=== PATIENT | male | born 1940 | race African-American/Black ===

== ENCOUNTER 2016-09-02 09:05 | Emergency (ER) | payer OTHER ==
--- NOTE | 2016-09-02 09:18 | PDOC ---
History of Present Illness <Mary Vargas - Last Filed: 09/02/16 11:42> <Nahomy Rudolph - Last Filed: 09/03/16 19:29> - General Chief Complaint: Chest Pain Stated Complaint: CHEST PAIN Time Seen by Provider: 09/02/16 09:17 - History of Present Illness Initial Comments: 09/02/16 09:31 Patient is a 76 year old male with significant medical hx of DM and HTN who is presenting to the ED with one hour of constant, substernal chest discomfort. The patient reports his chest pain is non-radiating and moderate in severity. The patient is unable to characterize his pain. His pain is not accompanied by nausea, vomiting, diaphoresis, or shortness of breath. He denies any alleviating or aggravating factors. Patient was given 4 aspirin via EMS but he continues to have chest discomfort in the ED. The patient also complains of two days of indigestion that is accompanied with diffuse abdominal discomfort and frequent belching but denies any vomiting or diarrhea. He also notes an episode of chest discomfort yesterday brief that was brief and did not seek medical care. Patient had a negative stress test about five years ago. EKG by EMS shows questionable elevations in V2 V3. No ST changes in EKG in the ED. (Mary Vargas) Past History <Mary Vargas - Last Filed: 09/02/16 11:42> <Nahomy Rudolph - Last Filed: 09/03/16 19:29> - Past Medical History Allergies/Adverse Reactions: Allergies Allergy/AdvReac Type Severity Reaction Status Date / Time No Known Allergies Allergy Verified 09/02/16 09:18 Home Medications: Ambulatory Orders Lisinopril [Prinivil] 20 mg PO DAILY 09/02/16 Metformin HCl [Glucophage] 1,000 mg PO DAILY 09/02/16 Review of Systems <Mary Vargas - Last Filed: 09/02/16 11:42> <Nahomy Rudolph - Last Filed: 09/03/16 19:29> - Review of Systems Comments:: 09/02/16 09:34 GENERAL/CONSTITUTIONAL: No fever or chills. No weakness. HEAD, EYES, EARS, NOSE AND THROAT: No change in vision. No ear pain or discharge. No sore throat. CARDIOVASCULAR: Chest pain. No shortness of breath. RESPIRATORY: No cough, wheezing, or hemoptysis. GASTROINTESTINAL: Indigestion, abdominal discomfort, belching. No nausea, vomiting, diarrhea or constipation. GENITOURINARY: No dysuria, frequency, or change in urination. MUSCULOSKELETAL: No joint or muscle swelling or pain. No neck or back pain. ENDOCRINE: No increased thirst. No abnormal weight change. SKIN: No rash NEUROLOGIC: No headache, vertigo, loss of consciousness, or change in strength/ sensation. (Mary Vargas) *Physical Exam <Mary Vargas - Last Filed: 09/02/16 11:42> <Nahomy Rudolph - Last Filed: 09/03/16 19:29> - Vital Signs Last Vital Signs Temp Pulse Resp BP Pulse Ox 98.4 F 68 18 163/81 95 09/02/16 11:36 09/02/16 11:36 09/02/16 11:36 09/02/16 11:36 09/02/16 11:21 - Physical Exam Comments: 09/02/16 09:35 GENERAL: Awake, alert, and fully oriented, in no acute distress HEAD: No signs of trauma EYES: PERRLA, EOMI, sclera anicteric, conjunctiva clear ENT: Auricles normal inspection, hearing grossly normal, nares patent, oropharynx clear without exudates. Moist mucosa NECK: Normal ROM, supple, no lymphadenopathy, JVD, or masses LUNGS: Breath sounds equal, clear to auscultation bilaterally. No wheezes, and no crackles HEART: Regular rate and rhythm, normal S1 and S2, no murmurs, rubs or gallops ABDOMEN: Obese. Soft, nontender, normoactive bowel sounds. No guarding, no rebound. No masses EXTREMITIES: Normal range of motion, no edema. No clubbing or cyanosis. No cords, erythema, or tenderness NEUROLOGICAL: Cranial nerves II through XII grossly intact. Normal speech, normal gait SKIN: Warm, Dry, normal turgor, no rashes or lesions noted. HEMATOLOGIC/LYMPHATIC: No anemia, easy bleeding, or history of blood clots. ALLERGIC/IMMUNOLOGIC: No hives or skin allergy. (Mary Vargas) Heart Score/ECG Review <Mary Vargas - Last Filed: 09/02/16 11:42> - Electrocardiogram EKG: Non specific repolarization disturbance - Age Age: >/= 65 - Risk Factors Risk Factors Heart Score: Yes Hx Hypertension, Yes Hx Diabetes, Yes Hx Obesity Based on the list above the patient has:: >/=3 risk factors or Hx atherosclerotic disease - ECG Intrepretation Rhythm: Regular Rhythm - [place]: Normal - P and MS Prominent R with upright T in V1 (true posterior PR): No Delta Wave(s) Present: No - ST and T Early Repolarization: Yes <Nahomy Rudolph - Last Filed: 09/03/16 19:29> #1 09/02/16 09:36 Normal sinus rhythm at 94 bpm Cannot rule out Inferior infarct, age undetermined Anterior infarct, age undetermined Abnormal ECG (Mary Vargas) #2 09/02/16 11:14 Normal sinus rhythm at 78 bpm Minimal voltage criteria for LVH, may be normal variant Inferior infarct, age undetermined Anterior infarct, age undetermined Prolonged QT Abnormal ECG (Mary Vargas) ED Treatment Course - LABORATORY CBC & Chemistry Diagram: 09/02/16 09:19 09/02/16 09:19 - Consult/PCP Time Called: 09:50 (Spoke with dr. santiago 9:50 AM discussed with him the patient s ongoing chest pain the EKG that was done with EMS positive troponins, recommended another EKG which was done which showed small ST elevations in V2 and V3. Case again discussed with dr santiago who recommended transfer to [facility] for cardiac catheterization.) Case discussed with personal care physician: Albert Ang <Mary Vargas - Last Filed: 09/02/16 11:42> - LABORATORY CBC & Chemistry Diagram: 09/02/16 09:19 09/02/16 09:19 <Nahomy Rudolph - Last Filed: 09/03/16 19:29> - ADDITIONAL ORDERS Additional order review: 09/02/16 09:19 RBC 5.35 MCV 85.0 MCHC 32.4 RDW 15.4 MPV 7.6 Neutrophils % 62.3 Lymphocytes % 26.6 Monocytes % 10.1 Eosinophils % 0.5 Basophils % 0.5 - RADIOLOGY Radiology Studies Ordered: Category Date Time Status CHEST X-RAY PORTABLE* [RAD] Stat Radiology 06/02/17 09:19 Completed Radiograph Interpretation: 09/02/16 11:42 Chest X-Ray Impression: Cardiomegaly and probably mild congestion. Reported By: Mehran Pino MD (Mary Vargas) - Medications Given in the ED: ED Medications Discontinued Medications Generic Name Dose Route Start Last Admin Trade Name Michelle PRN Reason Stop Dose Admin Clopidogrel Bisulfate 600 mg 09/02/16 11:08 09/02/16 11:17 Plavix - PO 09/02/16 11:09 600 mg ONCE ONE Administration Heparin Sodium (Porcine) 5,000 unit 09/02/16 10:52 09/02/16 10:53 Heparin - IVPUSH 09/02/16 10:53 5,000 unit NOW ONE Administration Heparin Sodium (Porcine) 25, 500 mls @ 20 mls/hr 09/02/16 10:30 09/02/16 10:51 000 unit/ Sodium Chloride IV 20 mls/hr TITR ED Administration Protocol 1,000 UNIT/HR Nitroglycerin/Dextrose 250 mls @ 6 mls/hr 09/02/16 10:30 09/02/16 10:52 Nitroglycerin 25mg/D5w 250ml IVPB 6 mls/hr TITR ED Administration 10 MCG/MIN Nitroglycerin 0.3 mg 09/02/16 09:27 09/02/16 09:27 Nitrostat - SL 09/02/16 09:28 0.3 mg NOW ONE Administration Nitroglycerin 0.3 mg 09/02/16 09:56 09/02/16 09:57 Nitrostat - SL 09/02/16 09:57 0.3 mg NOW ONE Administration Medical Decision Making <Mary Vargas - Last Filed: 09/02/16 11:42> <Nahomy Rudolph - Last Filed: 09/03/16 19:29> - Medical Decision Making 09/02/16 09:46 Patient presents to the ED complaining of chest discomfort. Multiple risk factors for cardiac disease. Questionable anterior ST elevations on EKG by EMS , not seen in the ED. given ASA by EMS. Will check labs and cardiac enzymes, treat with nitroglycerin, likely admit to telemetry for continued monitoring. Will consult cardiology. 09/03/16 19:27 delayed note: Patient found to have positive troponin. Repeat EKG showed small elevations in v2 and v3. 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 Patient transferred directly to [facility] catheterization laboratory technician. ( Nahomy Rudolph) *DC/Admit/Observation/Transfer <Mary Vargas - Last Filed: 09/02/16 11:42> - Discharge Dispostion Admit: No - Transfer to Acute Care Facility Receiving Facility: [facility]. <Nahomy Rudolph - Last Filed: 09/03/16 19:29> Diagnosis at time of Disposition: STEMI (ST elevation myocardial infarction) - Discharge Dispostion Disposition: TRANSFER ACUTE CARE/OTHER HOSP Condition at time of disposition: Critical - Referrals Referrals: STAFF,NOT ON [Primary Care Provider] - - Attestations Scribe Attestion: 09/02/16 09:36 Documentation prepared by Mary Vargas, acting as bilingual medical assistant for Nahomy Rudolph MD. (Mary Vargas)
[2016-09-02 09:21] VITALS: BMI 28.5
[2016-09-02] MEDS ORDERED: NITROGLYCERIN SUBLINGUAL 1/200 0.3 MG BTL SL ONE ×2 (09:27→09:56)
[2016-09-02 09:36] LABS: BASOPHIL 0.5 % (0-2.0); EOSINOPHIL 0.5 % (0-4.5); MCH 27.5 pg (25.7-33.7); MCHC 32.4 g/dl (32.0-35.9); MEAN PLT VOLUME 7.6 fl (7.5-11.1); NEUTROPHILS 62.3 % (42.8-82.8); PLATELET COUNT 169 K/MM3 (134-434); RDW 15.4 % (11.9-15.9); WHITE BLOOD COUNT 2.9 K/mm3 (4.0-10.0)
[2016-09-02 10:01] LABS: INR 1.07 (0.82-1.09); PROTHROMBIN TIME (PATIENT) 11.8 SEC (9.98-11.88)
[2016-09-02 10:03] LABS: ALBUMIN 3.7 g/dl (3.4-5.0); ANION GAP 7 (8-16); BILIRUBIN,TOTAL 0.3 mg/dL (0.2-1.0); CO2 28 mmol/L (21-32); COCKROFT - GAULT 85.23; GLUCOSE,RANDOM 215 mg/dL (74-106); SGOT/AST 27 U/L (15-37); SGPT/ALT 20 U/L (12-78); TOT PROT 7.5 g/dl (6.4-8.2)
[2016-09-02 10:07] LABS: ALK PHOS 89 U/L (45-117)
[2016-09-02 10:19] LABS: TROPONIN I 1.53 ng/ml (0.00-0.05)
[2016-09-02] MEDS ORDERED: HEPARIN NA (PORCINE) 5,000 UNITS/ML 1ML VIAL IVPUSH PRN (10:24)
[2016-09-02] MEDS ORDERED: NITROGLYCERIN 25MG/D5W 250ML 250 ML IVPB SCH (10:30)
[2016-09-02] MEDS ORDERED: HEPARIN - 25,000 UNIT in SODIUM CHLORIDE 495 ML IV SCH (10:30)
[2016-09-02] MEDS ORDERED: NITROGLYCERIN 25MG/D5W 250ML 250 ML IVPB ONE (10:33)
[2016-09-02] MEDS ORDERED: HEPARIN NA (PORCINE) 5,000 UNITS/ML 1ML VIAL ONE (10:33)
[2016-09-02] MEDS ORDERED: HEPARIN INFUSION - 500 ML IVPB ONE (10:34)
[2016-09-02] MEDS ORDERED: HEPARIN NA (PORCINE) 5,000 UNITS/ML 1ML VIAL IVPUSH ONE (10:52)
[2016-09-02] MEDS ORDERED: CLOPIDOGREL BISULFATE 300 MG TABLET PO ONE (11:08)
[2016-09-02] MEDS ORDERED: CLOPIDOGREL BISULFATE 300 MG TABLET ONE (11:13)
[2016-09-02 11:37] VITALS: BP 163/81; PULSE 68; TEMP 98.4
--- NOTE | 2016-09-03 19:21 | EKG ---
Test Reason : Blood Pressure : / mmHG Vent. Rate : 078 BPM Atrial Rate : 078 BPM P-R Int : 154 ms QRS Dur : 098 ms QT Int : 458 ms P-R-T Axes : 065 -13 -10 degrees QTc Int : 522 ms NORMAL SINUS RHYTHM MINIMAL VOLTAGE CRITERIA FOR LVH, MAY BE NORMAL VARIANT INFERIOR INFARCT , AGE UNDETERMINED ANTERIOR INFARCT , AGE UNDETERMINED PROLONGED QT ABNORMAL ECG NO PREVIOUS ECGS AVAILABLE Confirmed by COTY ONEILL, MIRNA ([id number]) on 09/03/2016 7:20:54 PM Referred By: Confirmed By:MIRNA ANSARI MD
--- NOTE | 2016-09-04 16:35 | EKG ---
Test Reason : Blood Pressure : / mmHG Vent. Rate : 094 BPM Atrial Rate : 094 BPM P-R Int : 148 ms QRS Dur : 100 ms QT Int : 394 ms P-R-T Axes : 078 -01 243 degrees QTc Int : 492 ms NORMAL SINUS RHYTHM CANNOT RULE OUT INFERIOR INFARCT , AGE UNDETERMINED ANTERIOR INFARCT , AGE UNDETERMINED ABNORMAL ECG NO PREVIOUS ECGS AVAILABLE Confirmed by MIRNA ANSARI MD ([id number]) on 09/04/2016 4:35:19 PM Referred By: Confirmed By:MIRNA ANSARI MD
== END 2016-09-02 11:43 | disposition short-term general hospital (02) ==
LOC: JER 09:05
PROC: 3E033GC Introduction of Other Therapeutic Substance into Peripheral Vein, Percutaneous Approach (ICD-10-PCS; principal; 2016-09-02)
DX: I21.3 ST elevation (STEMI) myocardial infarction of unspecified site (principal); E11.9 Type 2 diabetes mellitus without complications; I10 Essential (primary) hypertension
CPT/HCPCS: 36415; 71010-TC; 80053; 82550; 82553; 84484; 85025; 85610; 85730; 93005; 93010; 96365; 96375; 99285-25; J1644